=== PATIENT | female | born 1965 | race Caucasian/White ===

== ENCOUNTER 2017-10-15 05:30 | Day surgery (SDC) | payer OTHER ==
[~2017-10-15 05:30] MED LIST: SYNTHROID75 MCG PO
== END 2017-10-15 11:15 | disposition home or self-care (01) ==
LOC: CIR.AMB 05:30
DX: D27.1 Benign neoplasm of left ovary (principal); N39.3 Stress incontinence (female) (male)
CPT/HCPCS: 58661; 49084; 57288; C1771